=== PATIENT | female | born 1990 | race Caucasian/White ===

== ENCOUNTER 2024-06-06 09:06 | Day surgery (SDC) | payer OTHER ==
[2024-05-31 15:13] VITALS: BMI 35.4
[2024-06-06] MEDS ORDERED: AFRIN NASAL MIST 15 ML BOT ONE ×2 (09:39→10:37)
[2024-06-06] MEDS ORDERED: Oxymetazoline HCl 0.05% ( 15 ML ) ONE (09:45)
[2024-06-06] MEDS ORDERED: EPINEPHrine 1 MG/ML VIAL ONE (10:35)
[2024-06-06] MEDS ORDERED: Lidocaine 1% (PF) 30 ML VIAL ONE (10:36)
[2024-06-06] MEDS ORDERED: Triamcinolone 40 MG/ML VIAL ONE (10:36)
[2024-06-06] MEDS ORDERED: PROPOFOL 20 ML ONE ×3 (10:45→12:04)
[2024-06-06] MEDS ORDERED: Lidocaine 1% PF 5 ML VIAL ONE (10:46)
[2024-06-06] MEDS ORDERED: fentaNYL 50 mcg/mL 1 mL Vial ONE ×3 (10:46→13:09)
[2024-06-06] MEDS ORDERED: Dexamethasone 20 MG/5 ML VIAL ONE (10:47)
[2024-06-06] MEDS ORDERED: Ondansetron PF 4 MG/2 ML Vial ONE (10:47)
[2024-06-06] MEDS ORDERED: SUCCINYLCHOLINE/SOD CL,ISO/PF 200 MG/10 ML SYRINGE FS ONE (10:47)
[2024-06-06] MEDS ORDERED: Dexmedetomidine 200 MCG/2 ML VIAL ONE (10:47)
[2024-06-06] MEDS ORDERED: Hydrocodone-Acetamin 15 ML UDCUP ONE (13:50)
== END 2024-06-06 14:25 | disposition home or self-care (01) ==
LOC: CSHSDC 09:06
PROVIDERS: ATTEND Specialist
PROC: 09CT8ZZ Extirpation of Matter from Left Frontal Sinus, Via Natural or Artificial Opening Endoscopic (ICD-10-PCS; principal; 2024-06-06)
PROC: 09CQ8ZZ Extirpation of Matter from Right Maxillary Sinus, Via Natural or Artificial Opening Endoscopic (ICD-10-PCS; principal; 2024-06-06)
PROC: 09CW8ZZ Extirpation of Matter from Right Sphenoid Sinus, Via Natural or Artificial Opening Endoscopic (ICD-10-PCS; principal; 2024-06-06)
PROC: 09CX8ZZ Extirpation of Matter from Left Sphenoid Sinus, Via Natural or Artificial Opening Endoscopic (ICD-10-PCS; principal; 2024-06-06)
PROC: 09CV8ZZ Extirpation of Matter from Left Ethmoid Sinus, Via Natural or Artificial Opening Endoscopic (ICD-10-PCS; principal; 2024-06-06)
PROC: 09TL8ZZ Resection of Nasal Turbinate, Via Natural or Artificial Opening Endoscopic (ICD-10-PCS; principal; 2024-06-06)
PROC: 09CU8ZZ Extirpation of Matter from Right Ethmoid Sinus, Via Natural or Artificial Opening Endoscopic (ICD-10-PCS; principal; 2024-06-06)
PROC: 09C Ear, Nose, Sinus, Extirpation (ICD-10-PCS; principal; 2024-06-06)
PROC: 09CR8ZZ Extirpation of Matter from Left Maxillary Sinus, Via Natural or Artificial Opening Endoscopic (ICD-10-PCS; principal; 2024-06-06)
PROC: 09CK8ZZ Extirpation of Matter from Nasal Mucosa and Soft Tissue, Via Natural or Artificial Opening Endoscopic (ICD-10-PCS; principal; 2024-06-06)
DX: J34.3 Hypertrophy of nasal turbinates (principal); J32.0 Chronic maxillary sinusitis; J32.1 Chronic frontal sinusitis; J32.3 Chronic sphenoidal sinusitis; J01.91 Acute recurrent sinusitis, unspecified; F41.9 Anxiety disorder, unspecified; G50.1 Atypical facial pain; R06.02 Shortness of breath; Z79.899 Other long term (current) drug therapy
CPT/HCPCS: J0171; J1100; J2405; J2704; J3010; J3301